=== PATIENT | male | born 1950 | race Caucasian/White ===

== ENCOUNTER 2017-08-21 16:11 | Inpatient (IN) ==
[2017-08-21] MEDS ORDERED: levoFLOXacin 750 MG TABLET PO ONE (16:26)
--- NOTE | 2017-08-21 16:32 | Emergency Department Note ---
Disposition Clinical Impression: Bilateral pneumonia, Severe sepsis Disposition: Admitted As Inpatient [facility] Care Provider[facility] - Forms: ED Satisfaction Letter General Adult HPI - General Chief complaint: ED Shortness of Breath/Dyspnea Stated complaint: [facility] Time Seen by Provider: 08/21/17 16:19 Source: patient, EMS Limitations: no limitations - History of Present Illness HPI Narrative: 74-year-old male reports from the [facility], he was evaluated urgent care and determine have bilateral pneumonitis, he was recently treated with azithromycin, the reports are the patient received Rocephin injection at the facility. The patient has been short of breath, a lactic acid was elevated at the DE. The patient has had a cough. There is no history of chest pain, abdominal pain vomiting diarrhea or confusion. The patient does not wear oxygen at home, he has no history of COPD. He is a type II diabetic. There is no history of leg swelling or pain or syncope. No history of CAD or CHF. There is no history of malignancy DVT or PE. There is no history of dylan confusion or difficulty moving the arms or legs and apparently. No acute back pain urinary symptoms or rash. No history of headache or neck stiffness. Some shortness of breath as described. Pain Scale: 0 - Related Data Home Medications Medication Instructions Recorded Confirmed Acetaminophen [Tylenol] 650 mg PO Q6H PRN 08/21/17 08/21/17 Azithromycin [Azithromycin 6-Tab 250 mg PO PER PKG DI 08/21/17 08/21/17 Pack] Benzonatate 100 mg PO TID PRN 08/21/17 08/21/17 L. Acidophilus/Pectin, [place] 1 each PO DAILY 08/21/17 08/21/17 [Acidophilus Probiotic Capsule] Saw/Vit E/Sod Mary Lou/Lyc/Beta/Pyg 1 each PO DAILY 08/21/17 08/21/17 [Prostate Health Caplet] Sildenafil Citrate [Viagra] 25 mg PO AD PRN 08/21/17 08/21/17 Terazosin HCl 10 mg PO HS 08/21/17 08/21/17 Allergies Allergy/AdvReac Type Severity Reaction Status Date / Time polyethylene glycol 400 AdvReac Unknown Verified 08/21/17 16:50 [From Systane (propylene glycol)] propylene glycol AdvReac Unknown Verified 08/21/17 16:50 [From Systane (propylene glycol)] All systems ED: reviewed and negative except as stated. Past Medical History - Past Medical History Medical history: Reports: diabetes, hyperlipidemia, hypertension Psychiatric history: Reports: no psych history - Social History Smoking Status: Former smoker Smokeless Tobacco Status: No Alcohol use: Reports: occasionally Drug use: Reports: none Physical Exam - General Limitations: no limitations General appearance: alert, in no apparent distress - Head Head exam: atraumatic, normocephalic, normal inspection - Eye Eye exam: Present: normal appearance, PERRL, EOMI, scleral icterus. Absent: conjunctival injection, miosis, mydriasis - ENT ENT exam: normal exam, normal oropharynx, mucous membranes moist, normal external ear exam - Neck Neck exam: Present: normal inspection, full ROM, trachea midline - Chest Chest inspection: Present: symmetric chest wall rise. Absent: tenderness - Respiratory Respiratory exam: Present: prolonged expiratory phase. Absent: respiratory distress, wheezes, accessory muscle use - Cardiovascular Cardiovascular exam: Present: normal rhythm, tachycardia - Abdominal Exam Abdominal exam: Present: soft, Non-Tender, normal bowel sounds. Absent: tenderness, distention, guarding, rebound, rigidity, pulsatile mass - Extremities Exam Extremities exam: Present: normal inspection, full ROM, normal capillary refill. Absent: tenderness, pedal edema, joint swelling, calf tenderness - Expanded Lower Extremity Exam Lower leg exam: Absent: Homans' sign Neurovascular/Tendon exam: Present: normal capillary refill. Absent: pulse deficit, motor deficit, sensory deficit, extremity cold to touch, pallor - Back Exam Back exam: Present: normal inspection, full ROM. Absent: tenderness, CVA tenderness (R), CVA tenderness (L), vertebral tenderness - Neurological Exam Neurological exam: Present: alert, oriented X3, CN II-XII intact. Absent: motor sensory deficit - Psychiatric Psychiatric exam: Present: normal affect, normal mood - Skin Skin exam: Present: warm, dry, intact, normal color. Absent: rash, cyanosis, diaphoresis, erythema, pallor, mottled Course Vital Signs Temperature 101.2 F H 08/21/17 16:13 Pulse Rate 134 08/21/17 16:13 Respiratory Rate 22 08/21/17 16:13 Blood Pressure 106/56 08/21/17 16:13 O2 Sat by Pulse Oximetry 90 08/21/17 16:13 Temperature 101.2 F H 08/21/17 16:13 Pulse Rate 134 08/21/17 16:13 Respiratory Rate 20 08/21/17 17:14 Blood Pressure 106/56 08/21/17 16:13 O2 Sat by Pulse Oximetry 94 08/21/17 17:14 Oxygen Delivery Oxygen Delivery Nasal Cannula Medical Decision Making - MDM Narrative Medical decision making narrative: The patient was evaluated at the [facility], chest x-ray reveals bilateral pneumonitis. The patient's white count is low, he had an elevated bilirubin and abnormal liver function tests as well as an lactate of 2.2. He was given Rocephin at the DE, he had been previously treated with azithromycin. The patient has been symptomatically for about 10 days. Levaquin was ordered here in emergency department. The DE [place] blood cultures. Patient was given IV fluids here in the emergency department. He was significantly tachycardic with elevated LFT's, I believe he meets severe sepsis criteria. The patient's primary examination reveals the extremities to be warm and well perfused. Secondary examination reveals that the patient is perfusing well, he is alert and following commands well. Lungs re-auscultated show diminished breath sounds , initially do an abdomen ordered as well as Solu-Medrol. The patient remained somewhat tachycardic but appears to be stable. I discussed the case with the hospitalist on-call who has accepted the patient to their care. The patient is currently stable pending admission to the hospital. The patient appears to have failed outpatient therapy. 5 L of oxygen was applied in the ED. The patient has no usual oxygen requirement. Solu-Medrol and a DuoNeb were also ordered. - Lab Data Lab results reviewed: Yes I reviewed the patient's lab results. Lab Results 08/21/17 08/21/17 Range/Units 16:47 16:47 PT 14.6 H (9.4-12.1) Seconds INR 1.3 APTT 28.1 (26.0-36.0) Seconds Lactic Acid 1.0 (0.5-2.2) mmol/L - Radiology Data Radiology results reviewed: Yes I reviewed the patient's radiology results.
[2017-08-21] MEDS: 0.9 % Sodium Chloride 1,000 ML IVC SCH ×2 (16:38→23:19)
[2017-08-21] MEDS ORDERED: methylPREDNISolone 125 MG/2 ML VIAL IVP ONE (16:42)
[2017-08-21] MEDS ORDERED: Ipratropium/Albuterol Neb 3 ML IH ONE (16:42)
[2017-08-21 17:03] LABS: INR 1.3; Prothrombin Time 14.6 Seconds (9.4-12.1)
[2017-08-21 17:05] LABS: Activated Partial Thrombo Time 28.1 Seconds (26.0-36.0)
[2017-08-21 18:14] LABS: Squamous Epithelial Cell,Urine Few per lpf (None-Few)
[2017-08-21 18:15] LABS: RBC,Urine 15-30 per hpf (0-3)
[2017-08-21 18:16] LABS: Bacteria,Urine Few per hpf (None-Few)
[2017-08-21 19:03] LABS: Hematocrit 33.6 % (37.5-50.1); Hemoglobin 11.6 g/dL (12.9-16.9); Lymphocytes # 0.3 K/mcL (0.6-4.6); Lymphocytes % 6.8 %; Mean Corpuscular HGB Conc 34.5 g/dL (31.6-35.5); Mean Corpuscular Hemoglobin 28.7 pg (28.0-33.3); Mean Corpuscular Volume 83.2 fL (83.0-100.0); Monocytes # 0.2 K/mcL (0.0-1.3); Monocytes % 5.3 %; Neutrophils # 3.6 K/mcL (1.6-8.9); Platelet Count 114 K/mcL (140-400); Red Blood Count 4.04 M/mcL (4.19-5.50); Red Cell Distribution Width 14.7 % (11.5-14.5); Segmented Neutrophils % 86.9 %
[2017-08-21 19:06] LABS: Alanine Aminotransferase 42 Units/L (0-55); Albumin 2.2 g/dL (3.5-5.0); Albumin/Globulin Ratio 0.6 (1.1-2.2); Alkaline Phosphatase 504 Units/L (38-126); Aspartate Amino Transferase 29 Units/L (5-34); BUN/Creatinine Ratio 10 (6-26); Bilirubin,Total 2.8 mg/dL (0.2-1.2); Blood Urea Nitrogen 10 mg/dL (8-26); Calcium 8.4 mg/dL (8.6-10.8); Carbon Dioxide 21 mEq/L (19-29); Chloride 107 mEq/L (98-109); Globulin 3.8 g/dL (2.4-3.5); Glucose 145 mg/dL (70-99); Osmolality,Calculated 284 (280-300); Potassium 3.3 mEq/L (3.5-4.5); Sodium 136 mEq/L (136-145); eGFR For African Americans > 60 (> 60); eGFR For Non-African Americans > 60 (> 60)
[2017-08-21] MEDS ORDERED: 0.9 % Sodium Chloride 1,000 ML IVC ONE (19:09)
[2017-08-21] MEDS ORDERED: Acetaminophen 325 MG TABLET PO PRN (19:09)
[2017-08-21] MEDS ORDERED: Ondansetron 4 MG/2 ML VIAL IVP PRN (19:10)
[2017-08-21] MEDS ORDERED: Naloxone 0.4 MG/ML INJ IVP PRN (19:13)
[2017-08-21] MEDS ORDERED: 0.9 % Sodium Chloride 1,000 ML IVC SCH (19:15)
[2017-08-21 19:27] LABS: Platelet Estimate Decreased (Normal)
--- NOTE | 2017-08-21 20:38 | Internal Med History&Physical ---
<Miguel Ángel Aragon - Last Filed: 08/21/17 21:19> Date of Encounter: 08/21/17 Time of Encounter: 18:00 Assessment and Plan (1) Bilateral pneumonia Current visit: Yes Status: Acute Patient presents with bilateral pneumonitis [facility]. Pt. states he was placed on PO azithromycin for dx of pneumonia on August 11 but his sx have worsened since that time. Pt. reports SOB/dyspnea and dizziness d/t SOB. Pt. denies use of home O2. Pt. also reports productive cough w/sputum production which has also increased. Blood cultures x2. Sputum culture. Continuous cardiac telemetry. Supplemental O2 w/titration and SpO2 monitoring. DuoNebs Q4 scheduled. Mucinex for cough. Pt. was given IVPB levaquin in the ED. Will discontinue levaquin and administer IVPB cefepime 1,000 mg Q8HR and IVPB vancomycin with pharmacy dosing for infection coverage. Will monitor pt. and f/ u labs for signs of increasing infection, cardiac, and/or respiratory distress. Pt. is at high risk for sepsis and further morbidity based on current sx, hx of failure of abx OP therapy, and SIRS criteria. Inpatient. Qualifiers: Pneumonia type: due to unspecified organism Lung location: unspecified part of lung Qualified Code(s): J18.9 - Pneumonia, unspecified organism (2) SIRS (systemic inflammatory response syndrome) Current visit: Yes Status: Acute Patient meets SIRS criteria based on white blood count of 4.1, temperature 101.2 F, heart rate of 132 bpm, and respiration rate of 22. [facility] to [facility], pts. lactic acid was elevated. Pt. received 1 bolus of 0.9 NS in the ED, followed by 125 mL/HR. Timed lactic acids ordered. Blood cultures x2 ordered stat. Sputum culture ordered stat. Continuous cardiac telemetry for tachycardia. Supplemental O2 w/titration and SpO2 monitoring. Monitor f/u labs and pt. for signs of increasing infection, cardiac, and/or respiratory distress. (3) Anemia Current visit: Yes Status: Acute Acute anemia with Hgb of 11.6 and Hct of 33.6 on admission. Pt. denies hx of anemia. Administer B12 1,000 mcg PO once and folic acid 1 mg PO daily. Monitor f /u labs. Qualifiers: Anemia type: unspecified type Qualified Code(s): D64.9 - Anemia, unspecified (4) Hypokalemia Current visit: Yes Status: Acute Acute hypokalemia with level of 3.3 on admission. Administer 20 mEq of PO potassium. Monitor f/u labs. (5) Hypocalcemia Current visit: Yes Status: Acute Acute hypocalcemia with level of 8.4 on admission. Administer calcium carbonate PO 1,000 mg TID. Monitor f/u labs. (6) Urinary retention Current visit: Yes Status: Chronic Hx of chronic urinary retention. Will continue patient's prostate health capsule and Terazosin. Monitor I&O and daily weight. (7) Pre-diabetes Current visit: Yes Status: Chronic Acute hyperglycemia w/BG of 145. Pt. denies hx of diabetes or use of oral antuhyperglycemic medications or insulin. Low-dose correction insulin sliding scale with hypoglycemic protocol. BG checks ACHS. A1c in a.m. labs. (8) DVT prophylaxis Current visit: Yes Status: Acute Heparin 5,000 units SQ Q8 for DVT prophylaxis. Monitor pt. for signs of bleeding. Internal Medicine - H&P: HPI Chief complaint: SOB/Dyspnea Admitted From: Emergency Dept Plans for Post Hospital Care: Home History of present illness: Mr. Coelho is a 67 year old male with medical hx of pre-diabetes and urinary retention presents from the ED with chief complaint of shortness of breath and dyspnea since August 11. Patient also reports he has a cough with productive sputum for the same time period. She reports he was diagnosed with pneumonia at the [facility] several weeks ago and placed on by mouth azithromycin and [facility] Patient reports his symptoms have worsened and he now has a productive cough, shortness of breath, and dizziness related to shortness of breath. Patient denies fever, chills, nausea , vomiting, chest pain, palpitations, abdominal pain, diarrhea, constipation, changes in vision, unusual bleeding, headache, pre-syncope, or syncope. Past Med Surg Social Fam HX - Past Medical History Source: patient, old records reviewed, obtained from family Medical history: other (Pre-diabetes, urinary retention) Psychiatric history: no psych history - Past Surgical History Surgical History: orthopedic, other (Bilateral elbows), other (Bladder surgery) - Social History Smoking Status: Former smoker Packs per day: 2 PPD - Reports quitting in 1994 Smokeless Tobacco Status: No Alcohol use: occasionally Drug use: none Current living situation: Home, With Family Activity Level: Independent ambulation Recent Out of Country Travel Within the Last 8 Weeks: No Exposure or Possible Exposure to Illness During Travel: No - Family History Father Race: Family Member Ethnicity: Non- Living Status: Still Living Hx Family Cardiac Disorders: Yes ([place], Bypass surgery, Stent placements) Hx Family Cancer: Yes (Melanoma of the neck) Mother Race: Family Member Ethnicity: Non- Living Status: Age at : 88 Cause of : [place] Hx Family Cardiac Disorders: Yes ([place]) Sister Race: Family Member Ethnicity: Non- Living Status: Still Living Hx Family Medical Disorders: No Internal Medicine - H&P: Meds Acetaminophen [Tylenol] 650 mg PO Q6H PRN 08/21/17 [History] Azithromycin [Azithromycin 6-Tab Pack] 250 mg PO PER PKG DI 08/21/17 [History] Benzonatate 100 mg PO TID PRN 08/21/17 [History] L. Acidophilus/Pectin, [place] [Acidophilus Probiotic Capsule] 1 each PO DAILY [History] Saw/Vit E/Sod Mary Lou/Lyc/Beta/Pyg [Prostate Health Caplet] 1 each PO DAILY [History] Sildenafil Citrate [Viagra] 25 mg PO AD PRN 08/21/17 [History] Terazosin HCl 10 mg PO HS 08/21/17 [History] 3 Allergy/AdvReac Type Severity Reaction Status Date / Time polyethylene glycol 400 AdvReac Unknown Verified 08/21/17 16:50 [From Systane (propylene glycol)] propylene glycol AdvReac Unknown Verified 08/21/17 16:50 [From Systane (propylene glycol)] All Systems PM: A 10-system review of systems was performed and is negative for pertinent findings except as documented above in the HPI. - Constitutional Constitutional: no chills, no fever(s), no night sweats - EENT Eyes: no change in vision, no discharge, no pain, no photophobia Ears: no ear discharge, no ear pain, no tinnitus Nose, mouth and throat: no dysphagia, no nasal discharge, no neck pain, no sore throat - Breasts Breasts: as per HPI - Cardiovascular Cardiovascular ROS IM: as per HPI, dyspnea, dyspnea on exertion, no chest pain, no diaphoresis, no lightheadedness, no palpitations, no syncope - Respiratory Respiratory: as per HPI, cough, dyspnea, dyspnea on exertion, chest congestion - Gastrointestinal Gastrointestinal: no abdominal pain, no diarrhea, no hematemesis, no hematochezia, no melena, no nausea, no vomiting - Genitourinary Genitourinary ROS male: as per HPI, difficulty urinating - Musculoskeletal Musculoskeletal ROS IM: no numbness, no tingling - Integumentary Integumentary IM: no rash, no unusual bruising - Neurological Neurological ROS: as per HPI, dizziness, no confusion, no convulsions, no focal weakness, no numbness, no tingling, no tremor(s) - Psychiatric Psychiatric: as per HPI - Endocrine Endocrine IM: as per HPI - Hematologic/Lymphatic Hematologic/Lymphatic: no easy bruising - Allergic/Immunologic Allergic/Immunologic: as per HPI - Constitutional Vitals: Temp Pulse Resp BP Pulse Ox 98 F 121 18 130/68 92 08/21/17 19:22 08/21/17 19:22 08/21/17 19:22 08/21/17 19:22 08/21/17 19:22 General appearance: Present: cooperative, mild distress (Respiratory), A&O X 3, pleasant, answers questions appropriately - Head Head exam: Present: atraumatic, normal inspection, normocephalic - Eye Eye exam: Present: PERRL, conjuntiva pink, sclera anicteric Pupils: Present: PERRL - ENT ENT exam: Present: normal exam, normal external ear exam - Neck Neck exam general surgery: Present: normal inspection, supple, trachea midline. Absent: lymphadenopathy - Respiratory Respiratory exam: Present: decreased breath sounds. Absent: accessory muscle use, rales, rhonchi, wheezes - Cardiovascular Cardiovascular exam: Present: RRR, +S1, +S2. Absent: diastolic murmur, gallop, rubs, systolic murmur - GI/Abdominal GI/Abdominal exam: Present: normal bowel sounds, soft, no peritoneal signs. Absent: distended, tenderness - Rectal Rectal exam: Present: deferred - Additional comments: exam deferred. - Extremities Exam Extremities exam: Present: warm, radial pulses palpable and symmetrical. Absent : calf tenderness, cyanotic, pedal edema - Back Exam Back exam: Present: normal inspection - Neurological Exam Neurological exam: Present: CN II-XII intact, oriented X3, no focal deficits. Absent: pronater drift, facial droop, speech deficit - Psychiatric Psychiatric exam: Present: normal affect, normal mood - Skin Skin exam: Present: dry, intact Internal Med - H&P Results - Labs CBC & Chem 7: 08/21/17 16:46 08/21/17 16:46 - EKG Data EKG shows normal: sinus rhythm Rate: tachycardia - EKG Data Prior EKG available for review: yes EKG comments: 08/21/17 20:50 EKG dated 03/16/17 shows sinus rhythm, indeterminate axis, right bundle branch block. EKG dated 08/21/17 shows sinus tachycardia, nonspecific ST and T-wave abnormality, abnormal ECG. <Mikie Cruz - Last Filed: 08/22/17 06:33> Date of Encounter: 08/22/17 Internal Medicine - H&P: HPI History of present illness: Mr. Coelho is a 67 year old male All Systems PM: A 10-system review of systems was performed and is negative for pertinent findings except as documented above in the HPI. - Constitutional Vitals: Temp Pulse Resp BP Pulse Ox 99 F 106 22 152/81 95 08/22/17 05:13 08/22/17 05:13 08/22/17 05:13 08/22/17 05:13 08/22/17 05:13 Internal Med - H&P Results - Labs CBC & Chem 7: 08/21/17 16:46 08/22/17 05:15 Labs: BMP 08/22/17 05:15 Sodium 137 Potassium 4.4 D Chloride 109 Carbon Dioxide 18 L BUN 12 Creatinine 0.96 Glucose 303 H Calcium 8.4 L Liver Function 08/22/17 Range/Units 05:15 Total Bilirubin 2.4 H (0.2-1.2) mg/dL AST 21 (5-34) Units/L ALT 35 (0-55) Units/L Alkaline Phosphatase 445 H (38-126) Units/L Albumin 1.9 L (3.5-5.0) g/dL - Attending Attestation I have seen and examined the patient independently. I have discussed with RECLAMATION FURNACE OPERATOR Mr Aragon regarding the management plan. Agree with the documentation. Patient has a failed azithromycin treatment. Will place patient on Vanco and cefepime to cover MRSA, strep, and Pseudomonas. No need for further atypical coverage because patient has been treated with azithromycin.
[2017-08-21] MEDS ORDERED: D5% in Water 1,000 ML IVC PRN (20:59)
[2017-08-21] MEDS: GuaiFENesin/Dextromethorphan TABLET PO SCH (20:59)
[2017-08-21] MEDS ORDERED: *HR* Dextrose 50 % in Water (Syg) 50 ML SYRINGE IVP PRN (20:59)
[2017-08-21] MEDS ORDERED: Dextrose Gel 15 GM PO PRN ×2 (20:59)
[2017-08-21] MEDS ORDERED: Vancomycin 1,250 MG in D5% in Water 250 ML IVPB SCH (21:00)
[2017-08-21] MEDS: *HR* Heparin 5,000 UNIT/ML VIAL SQ SCH (21:01)
[2017-08-21] MEDS: Insulin LISPRO 300 UNITS/3 ML VIAL SQ SCH (21:13)
[2017-08-21] MEDS: Vancomycin 1,250 MG in D5% in Water 250 ML IVPB SCH (23:04)
[2017-08-21] MEDS: Ipratropium/Albuterol Neb 3 ML IH SCH (23:33)
[2017-08-22] MEDS ORDERED: Cefepime HCl 1,000 MG in D5% in Water (Mini-Bag+) 100 ML IVPB SCH
[2017-08-22] MEDS: Cefepime HCl 1,000 MG in Water for inj. (sterile) 10 ML IVP SCH ×3 (01:03→15:49)
[2017-08-22] MEDS: Ipratropium/Albuterol Neb 3 ML IH SCH ×6 (04:10→23:24)
[2017-08-22] MEDS: *HR* Heparin 5,000 UNIT/ML VIAL SQ SCH ×3 (04:47→21:58)
[2017-08-22 06:15] LABS: Hematocrit 33.4 % (37.5-50.1); Hemoglobin 11.1 g/dL (12.9-16.9); Mean Corpuscular HGB Conc 33.2 g/dL (31.6-35.5); Mean Corpuscular Hemoglobin 28.3 pg (28.0-33.3); Mean Corpuscular Volume 85.2 fL (83.0-100.0); Mean Platelet Volume 11.1 fL (9.4-12.4); Monocytes # 0.2 K/mcL (0.0-1.3); Platelet Count 100 K/mcL (140-400); Red Blood Count 3.92 M/mcL (4.19-5.50); Red Cell Distribution Width 15.4 % (11.5-14.5)
[2017-08-22 06:17] LABS: Hemoglobin A1C 6.1 %
[2017-08-22 06:28] LABS: Alanine Aminotransferase 35 Units/L (0-55); Albumin/Globulin Ratio 0.5 (1.1-2.2); Alkaline Phosphatase 445 Units/L (38-126); Aspartate Amino Transferase 21 Units/L (5-34); BUN/Creatinine Ratio 13 (6-26); Bilirubin,Total 2.4 mg/dL (0.2-1.2); Blood Urea Nitrogen 12 mg/dL (8-26); Calcium 8.4 mg/dL (8.6-10.8); Carbon Dioxide 18 mEq/L (19-29); Chloride 109 mEq/L (98-109); Cholesterol 98 mg/dL (< 200); Globulin 3.7 g/dL (2.4-3.5); Glucose 303 mg/dL (70-99); HDL Cholesterol 7 mg/dL (40-59); LDL Cholesterol,Calculated 63 mg/dL (0-99); Magnesium 1.6 mg/dL (1.6-2.6); Osmolality,Calculated 295 (280-300); Sodium 137 mEq/L (136-145); Total Protein 5.6 g/dL (6.0-8.3); Triglycerides 141 mg/dL (< 150); eGFR For African Americans > 60 (> 60); eGFR For Non-African Americans > 60 (> 60)
[2017-08-22 06:29] LABS: Albumin 1.9 g/dL (3.5-5.0); Potassium 4.4 mEq/L (3.5-4.5)
[2017-08-22 07:13] LABS: Lymphocytes # 0.2 K/mcL (0.6-4.6); Neutrophils # 3.8 K/mcL (1.6-8.9)
[2017-08-22 07:14] LABS: Platelet Estimate Decreased (Normal)
[2017-08-22 07:17] LABS: Acanthocytes 1+ (Not Present); Hypochromasia Present (Not Present); Macrocytosis Present (Not Present); Tear Drop Cells 1+ (Not Present)
[2017-08-22 07:18] LABS: Polychromasia 1+ (Not Present); Toxic Granulation Present (Not Present)
[2017-08-22] MEDS: 0.9 % Sodium Chloride 1,000 ML IVC SCH ×2 (07:30→17:26)
[2017-08-22] MEDS ORDERED: VIT E PO SCH (09:00)
[2017-08-22] MEDS ORDERED: LYC PO SCH (09:00)
[2017-08-22] MEDS ORDERED: BETA PO SCH (09:00)
[2017-08-22] MEDS ORDERED: SAW PO SCH (09:00)
[2017-08-22] MEDS ORDERED: Levofloxacin 750 MG/150 ML 750 MG/150 ML BAG IVPB SCH (09:00)
[2017-08-22] MEDS ORDERED: PYG PO SCH (09:00)
[2017-08-22] MEDS ORDERED: SOD SEL PO SCH (09:00)
[2017-08-22] MEDS: Insulin LISPRO 300 UNITS/3 ML VIAL SQ SCH ×4 (09:25→21:55)
[2017-08-22] MEDS: Cyanocobalamin (B-12) 1,000 MCG TABLET PO SCH (09:25)
[2017-08-22] MEDS: Folic Acid 1 MG TABLET PO SCH (09:25)
[2017-08-22] MEDS: GuaiFENesin/Dextromethorphan TABLET PO SCH ×2 (09:34→21:54)
[2017-08-22] MEDS: Lactobacillus 1 EACH CAP.SPRINK PO SCH (09:34)
[2017-08-22] MEDS: Vancomycin 1,250 MG in D5% in Water 250 ML IVPB SCH ×2 (09:35→21:56)
[2017-08-22] MEDS: *HR* HYDROcodone/Acet 5/325 mg TABLET PO PRN (11:54)
--- NOTE | 2017-08-22 14:21 | Electrocardiograph Report ---
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
--- NOTE | 2017-08-22 19:01 | Internal Med Progress Note ---
Date of Encounter: 08/22/17 Time of Encounter: 11:00 - Assessment and plan (1) Bilateral pneumonia Current Visit: Yes Status: Acute Assessment and plan: -Will continue current medical management with IV cefepime and vancomycin. Qualifiers: Pneumonia type: due to unspecified organism Lung location: unspecified part of lung Qualified Code(s): J18.9 - Pneumonia, unspecified organism (2) Severe sepsis Current Visit: Yes Status: Acute Assessment and plan: -Secondary to the above. -Continue fluid resuscitation and IV antibiotics as above (3) DVT prophylaxis Current Visit: Yes Status: Acute Assessment and plan: -Subcutaneous heparin - Subjective Interval history: No acute events overnight. - Constitutional Vitals: Temp Pulse Resp BP Pulse Ox 97.6 F 120 19 129/63 88 08/22/17 16:30 08/22/17 16:30 08/22/17 16:30 08/22/17 16:30 08/22/17 16:30 General appearance: Present: cooperative, mild distress (Respiratory), A&O X 3, pleasant, answers questions appropriately - Respiratory Respiratory exam: Present: CTAB. Absent: accessory muscle use, rales, rhonchi, wheezes - Cardiovascular Cardiovascular exam: Present: RRR, +S1, +S2. Absent: diastolic murmur, gallop, rubs, systolic murmur Internal Medicine: Result - Labs CBC & Chem 7: 08/22/17 05:15 08/22/17 05:15 Labs: Short CBC 08/22/17 Range/Units 05:15 WBC 4.1 L (4.3-11.1) K/mcL Hgb 11.1 L (12.9-16.9) g/dL Hct 33.4 L (37.5-50.1) % Plt Count 100 L (140-400) K/mcL Neutrophils # 3.8 (1.6-8.9) K/mcL BMP 08/22/17 05:15 Sodium 137 Potassium 4.4 D Chloride 109 Carbon Dioxide 18 L BUN 12 Creatinine 0.96 Glucose 303 H Calcium 8.4 L Liver Function 08/22/17 Range/Units 05:15 Total Bilirubin 2.4 H (0.2-1.2) mg/dL AST 21 (5-34) Units/L ALT 35 (0-55) Units/L Alkaline Phosphatase 445 H (38-126) Units/L Albumin 1.9 L (3.5-5.0) g/dL - ABG Interpretation ABG results: PT/INR, D-dimer PT 14.6 Seconds (9.4-12.1) H 08/21/17 16:47 - VTE Documentation of Mechanical Device: Intermittent pneumatic compression device Consult Discharge Plan - Plan [facility]errals: [facility] [Primary Care Provider] -
[2017-08-22] MEDS ORDERED: Melatonin 3 MG TABLET PO PRN (22:46)
[2017-08-23] MEDS: Cefepime HCl 1,000 MG in Water for inj. (sterile) 10 ML IVP SCH ×3 (01:09→16:50)
[2017-08-23] MEDS: Ipratropium/Albuterol Neb 3 ML IH SCH ×6 (05:22→23:24)
[2017-08-23 05:24] LABS: Hematocrit 29.6 % (37.5-50.1); Immature Granulocytes % 1.7 % (0-4); Lymphocytes # 0.4 K/mcL (0.6-4.6); Lymphocytes % 9.2 %; Mean Corpuscular HGB Conc 33.8 g/dL (31.6-35.5); Mean Corpuscular Hemoglobin 28.9 pg (28.0-33.3); Mean Corpuscular Volume 85.5 fL (83.0-100.0); Mean Platelet Volume 10.6 fL (9.4-12.4); Monocytes # 0.3 K/mcL (0.0-1.3); Neutrophils # 3.4 K/mcL (1.6-8.9); Platelet Count 130 K/mcL (140-400); Red Blood Count 3.46 M/mcL (4.19-5.50); Red Cell Distribution Width 15.4 % (11.5-14.5); Segmented Neutrophils % 83.1 %
[2017-08-23 05:41] LABS: Alanine Aminotransferase 31 Units/L (0-55); Albumin/Globulin Ratio 0.5 (1.1-2.2); Alkaline Phosphatase 365 Units/L (38-126); Aspartate Amino Transferase 19 Units/L (5-34); BUN/Creatinine Ratio 18 (6-26); Blood Urea Nitrogen 20 mg/dL (8-26); Calcium 8.6 mg/dL (8.6-10.8); Carbon Dioxide 21 mEq/L (19-29); Chloride 109 mEq/L (98-109); Globulin 3.6 g/dL (2.4-3.5); Glucose 319 mg/dL (70-99); Osmolality,Calculated 301 (280-300); Potassium 4.1 mEq/L (3.5-4.5); Sodium 138 mEq/L (136-145); Total Protein 5.4 g/dL (6.0-8.3); eGFR For African Americans > 60 (> 60); eGFR For Non-African Americans > 60 (> 60)
[2017-08-23 05:43] LABS: Albumin 1.8 g/dL (3.5-5.0)
[2017-08-23] MEDS: *HR* Heparin 5,000 UNIT/ML VIAL SQ SCH ×3 (05:43→21:31)
[2017-08-23] MEDS: 0.9 % Sodium Chloride 1,000 ML IVC SCH ×2 (05:45→16:49)
[2017-08-23] MEDS: Lactobacillus 1 EACH CAP.SPRINK PO SCH (08:44)
[2017-08-23] MEDS: Folic Acid 1 MG TABLET PO SCH (08:44)
[2017-08-23] MEDS: GuaiFENesin/Dextromethorphan TABLET PO SCH ×2 (08:44→21:31)
[2017-08-23] MEDS: Cyanocobalamin (B-12) 1,000 MCG TABLET PO SCH (08:44)
[2017-08-23] MEDS: Vancomycin 1,250 MG in D5% in Water 250 ML IVPB SCH (08:48)
[2017-08-23] MEDS: Insulin LISPRO 300 UNITS/3 ML VIAL SQ SCH ×4 (08:49→21:32)
--- NOTE | 2017-08-23 19:22 | Internal Med Progress Note ---
Date of Encounter: 08/23/17 Time of Encounter: 11:00 - Assessment and plan (1) Bilateral pneumonia Current Visit: Yes Status: Acute Assessment and plan: -Sepsis has improved as patient now with a sofa score of 2 as opposed to 3 on . -Will continue current medical management with IV cefepime and vancomycin. Qualifiers: Pneumonia type: due to unspecified organism Lung location: unspecified part of lung Qualified Code(s): J18.9 - Pneumonia, unspecified organism (2) Severe sepsis Current Visit: Yes Status: Acute Assessment and plan: -Secondary to the above. -Sofa score now 3 as opposed to 2 on 08/22/17. -Continue fluid resuscitation and IV antibiotics as above (3) DVT prophylaxis Current Visit: Yes Status: Acute Assessment and plan: -Subcutaneous heparin - Subjective Interval history: No acute events overnight. - Constitutional Vitals: Temp Pulse Resp BP Pulse Ox 98.0 F 99 16 136/72 93 08/23/17 15:37 08/23/17 15:37 08/23/17 15:37 08/23/17 15:37 08/23/17 15:37 General appearance: Present: cooperative, mild distress (Respiratory), A&O X 3, pleasant, answers questions appropriately - Respiratory Respiratory exam: Present: CTAB. Absent: accessory muscle use, rales, rhonchi, wheezes - Cardiovascular Cardiovascular exam: Present: RRR, +S1, +S2. Absent: diastolic murmur, gallop, rubs, systolic murmur Internal Medicine: Result - Labs CBC & Chem 7: 08/23/17 04:29 08/23/17 04:29 Labs: Short CBC 08/23/17 Range/Units 04:29 WBC 4.1 L (4.3-11.1) K/mcL Hgb 10.0 L (12.9-16.9) g/dL Hct 29.6 L (37.5-50.1) % Plt Count 130 L (140-400) K/mcL Neutrophils # 3.4 (1.6-8.9) K/mcL BMP 08/23/17 04:29 Sodium 138 Potassium 4.1 Chloride 109 Carbon Dioxide 21 BUN 20 Creatinine 1.09 Glucose 319 H Calcium 8.6 Liver Function 08/23/17 Range/Units 04:29 Total Bilirubin 1.0 D (0.2-1.2) mg/dL AST 19 (5-34) Units/L ALT 31 (0-55) Units/L Alkaline Phosphatase 365 H (38-126) Units/L Albumin 1.8 L (3.5-5.0) g/dL - ABG Interpretation ABG results: PT/INR, D-dimer PT 14.6 Seconds (9.4-12.1) H 08/21/17 16:47 - Impressions Impressions Chest X-Ray 08/23/17 11:10 IMPRESSION: Mild bibasilar airspace disease which is likely infectious in etiology. D/ / Ted Lanier MD / Ted Lanier MD Interpreting Provider: Ted Lanier MD - VTE Documentation of Mechanical Device: Intermittent pneumatic compression device Consult Discharge Plan - Plan Instructions: Sepsis (DC), Anemia (GEN), Pneumonia (DC) [facility]errals: [facility] [Primary Care Provider] -
[2017-08-24] MEDS: Cefepime HCl 1,000 MG in Water for inj. (sterile) 10 ML IVP SCH ×4 (00:08→22:55)
[2017-08-24 01:19] LABS: Basophils % 0.3 %; Hematocrit 31.2 % (37.5-50.1); Hemoglobin 10.7 g/dL (12.9-16.9); Immature Granulocytes % 4.9 % (0-4); Lymphocytes # 0.7 K/mcL (0.6-4.6); Lymphocytes % 16.9 %; Mean Corpuscular HGB Conc 34.3 g/dL (31.6-35.5); Mean Corpuscular Hemoglobin 29.1 pg (28.0-33.3); Mean Corpuscular Volume 84.8 fL (83.0-100.0); Mean Platelet Volume 9.9 fL (9.4-12.4); Monocytes # 0.2 K/mcL (0.0-1.3); Monocytes % 4.9 %; Neutrophils # 2.8 K/mcL (1.6-8.9); Platelet Count 145 K/mcL (140-400); Red Blood Count 3.68 M/mcL (4.19-5.50); Red Cell Distribution Width 15.5 % (11.5-14.5)
[2017-08-24 01:36] LABS: Alanine Aminotransferase 48 Units/L (0-55); Albumin/Globulin Ratio 0.5 (1.1-2.2); Alkaline Phosphatase 444 Units/L (38-126); Aspartate Amino Transferase 52 Units/L (5-34); BUN/Creatinine Ratio 20 (6-26); Blood Urea Nitrogen 20 mg/dL (8-26); Calcium 8.3 mg/dL (8.6-10.8); Carbon Dioxide 20 mEq/L (19-29); Chloride 109 mEq/L (98-109); Globulin 3.6 g/dL (2.4-3.5); Glucose 145 mg/dL (70-99); Osmolality,Calculated 289 (280-300); Potassium 3.9 mEq/L (3.5-4.5); Sodium 137 mEq/L (136-145); Total Protein 5.4 g/dL (6.0-8.3); eGFR For African Americans > 60 (> 60); eGFR For Non-African Americans > 60 (> 60)
[2017-08-24 01:39] LABS: Albumin 1.8 g/dL (3.5-5.0)
[2017-08-24] MEDS: Ipratropium/Albuterol Neb 3 ML IH SCH ×6 (03:55→23:41)
[2017-08-24] MEDS: *HR* Heparin 5,000 UNIT/ML VIAL SQ SCH ×3 (06:36→21:34)
[2017-08-24] MEDS: 0.9 % Sodium Chloride 1,000 ML IVC SCH ×2 (06:36→15:14)
[2017-08-24] MEDS: Insulin LISPRO 300 UNITS/3 ML VIAL SQ SCH ×4 (07:45→20:11)
[2017-08-24] MEDS: Lactobacillus 1 EACH CAP.SPRINK PO SCH (08:23)
[2017-08-24] MEDS: GuaiFENesin/Dextromethorphan TABLET PO SCH ×2 (08:23→09:32)
[2017-08-24] MEDS: Folic Acid 1 MG TABLET PO SCH (08:23)
[2017-08-24] MEDS: Cyanocobalamin (B-12) 1,000 MCG TABLET PO SCH (08:23)
[2017-08-24] MEDS: *HR* HYDROcodone/Acet 5/325 mg TABLET PO PRN (08:23)
--- NOTE | 2017-08-24 20:36 | Internal Med Progress Note ---
Date of Encounter: 08/24/17 Time of Encounter: 10:00 - Assessment and plan (1) Bilateral pneumonia Current Visit: Yes Status: Acute Assessment and plan: -Sepsis has improved as patient now with a sofa score of 1 as opposed to 3 on . -Will continue current medical management with IV cefepime and vancomycin. Qualifiers: Pneumonia type: due to unspecified organism Lung location: unspecified part of lung Qualified Code(s): J18.9 - Pneumonia, unspecified organism (2) Severe sepsis Current Visit: Yes Status: Acute Assessment and plan: -Secondary to the above. -Sofa score now 1 as opposed to 3 on 08/22/17. -Continue fluid resuscitation and IV antibiotics as above (3) DVT prophylaxis Current Visit: Yes Status: Acute Assessment and plan: -Subcutaneous heparin - Subjective Interval history: No acute events overnight. - Constitutional Vitals: Temp Pulse Resp BP Pulse Ox 98.8 F 97 17 159/77 96 08/24/17 20:06 08/24/17 20:06 08/24/17 20:06 08/24/17 20:06 08/24/17 20:06 General appearance: Present: cooperative, mild distress (Respiratory), A&O X 3, pleasant, answers questions appropriately - Respiratory Respiratory exam: Present: CTAB. Absent: accessory muscle use, rales, rhonchi, wheezes - Cardiovascular Cardiovascular exam: Present: RRR, +S1, +S2. Absent: diastolic murmur, gallop, rubs, systolic murmur Internal Medicine: Result - Labs CBC & Chem 7: 08/24/17 00:58 08/24/17 00:58 Labs: Short CBC 08/24/17 Range/Units 00:58 WBC 3.8 L (4.3-11.1) K/mcL Hgb 10.7 L (12.9-16.9) g/dL Hct 31.2 L (37.5-50.1) % Plt Count 145 (140-400) K/mcL Neutrophils # 2.8 (1.6-8.9) K/mcL BMP 08/24/17 00:58 Sodium 137 Potassium 3.9 Chloride 109 Carbon Dioxide 20 BUN 20 Creatinine 0.99 Glucose 145 H Calcium 8.3 L Liver Function 08/24/17 Range/Units 00:58 Total Bilirubin 1.0 (0.2-1.2) mg/dL AST 52 H (5-34) Units/L ALT 48 (0-55) Units/L Alkaline Phosphatase 444 H (38-126) Units/L Albumin 1.8 L (3.5-5.0) g/dL - ABG Interpretation ABG results: PT/INR, D-dimer PT 14.6 Seconds (9.4-12.1) H 08/21/17 16:47 - VTE Documentation of Mechanical Device: Intermittent pneumatic compression device Consult Discharge Plan - Plan Instructions: Sepsis (DC), Anemia (GEN), Pneumonia (DC) [facility]: [facility] [Primary Care Provider] -
[2017-08-24] MEDS: Melatonin 3 MG TABLET PO PRN (22:56)
[2017-08-25 03:00] LABS: Hematocrit 30.9 % (37.5-50.1); Hemoglobin 10.2 g/dL (12.9-16.9); Mean Corpuscular Hemoglobin 28.1 pg (28.0-33.3); Mean Corpuscular Volume 85.1 fL (83.0-100.0); Mean Platelet Volume 9.6 fL (9.4-12.4); Platelet Count 140 K/mcL (140-400); Red Blood Count 3.63 M/mcL (4.19-5.50); Red Cell Distribution Width 15.5 % (11.5-14.5)
[2017-08-25 03:21] LABS: Alanine Aminotransferase 67 Units/L (0-55); Albumin 1.8 g/dL (3.5-5.0); Albumin/Globulin Ratio 0.5 (1.1-2.2); Alkaline Phosphatase 479 Units/L (38-126); Aspartate Amino Transferase 62 Units/L (5-34); BUN/Creatinine Ratio 15 (6-26); Bilirubin,Total 1.2 mg/dL (0.2-1.2); Blood Urea Nitrogen 15 mg/dL (8-26); Calcium 8.2 mg/dL (8.6-10.8); Carbon Dioxide 21 mEq/L (19-29); Chloride 110 mEq/L (98-109); Globulin 3.5 g/dL (2.4-3.5); Glucose 143 mg/dL (70-99); Osmolality,Calculated 291 (280-300); Potassium 3.7 mEq/L (3.5-4.5); Sodium 139 mEq/L (136-145); Total Protein 5.3 g/dL (6.0-8.3); eGFR For African Americans > 60 (> 60); eGFR For Non-African Americans > 60 (> 60)
[2017-08-25] MEDS: Ipratropium/Albuterol Neb 3 ML IH SCH ×5 (03:47→19:39)
[2017-08-25 03:58] LABS: Eosinophils # 0.1 K/mcL (0.0-0.6); Lymphocytes # 0.6 K/mcL (0.6-4.6); Monocytes # 0.2 K/mcL (0.0-1.3); Neutrophils # 2.6 K/mcL (1.6-8.9); Platelet Estimate Normal (Normal)
[2017-08-25 03:59] LABS: Anisocytosis 1+ (Not Present)
[2017-08-25] MEDS: *HR* Heparin 5,000 UNIT/ML VIAL SQ SCH ×3 (05:54→20:35)
[2017-08-25] MEDS: Lactobacillus 1 EACH CAP.SPRINK PO SCH (08:11)
[2017-08-25] MEDS: Folic Acid 1 MG TABLET PO SCH (08:11)
[2017-08-25] MEDS: Cefepime HCl 1,000 MG in Water for inj. (sterile) 10 ML IVP SCH ×2 (08:11→16:04)
[2017-08-25] MEDS: Cyanocobalamin (B-12) 1,000 MCG TABLET PO SCH (08:11)
[2017-08-25] MEDS: Insulin LISPRO 300 UNITS/3 ML VIAL SQ SCH ×4 (08:14→20:38)
[2017-08-25] MEDS ORDERED: Saline Nasal Spray 44 ML BOTTLE NS PRN (12:37)
[2017-08-25] MEDS: 0.9 % Sodium Chloride 1,000 ML IVC SCH ×2 (13:54)
--- NOTE | 2017-08-25 17:55 | Internal Med Progress Note ---
Date of Encounter: 08/25/17 Time of Encounter: 11:00 - Assessment and plan (1) Bilateral pneumonia Current Visit: Yes Status: Acute Assessment and plan: -Sepsis sofa score of 1 as opposed to 3 on 08/22/17. -Blood cultures negative to date; streptococcal antigen positive. -Will continue current medical management with IV cefepime. Qualifiers: Pneumonia type: due to unspecified organism Lung location: unspecified part of lung Qualified Code(s): J18.9 - Pneumonia, unspecified organism (2) Severe sepsis Current Visit: Yes Status: Acute Assessment and plan: -Secondary to the above. -Sofa score now 1 as opposed to 3 on 08/22/17. -Continue fluid resuscitation and IV antibiotics as above (3) DVT prophylaxis Current Visit: Yes Status: Acute Assessment and plan: -Subcutaneous heparin - Subjective Interval history: No acute events overnight. Patient reports a feeling better with decreased cough. - Constitutional Vitals: Temp Pulse Resp BP Pulse Ox 98.2 F 112 18 149/82 91 08/24/17 23:03 08/25/17 14:55 08/25/17 15:56 08/25/17 15:56 08/25/17 15:56 General appearance: Present: cooperative, mild distress (Respiratory), A&O X 3, pleasant, answers questions appropriately - Respiratory Respiratory exam: Present: CTAB. Absent: accessory muscle use, rales, rhonchi, wheezes - Cardiovascular Cardiovascular exam: Present: RRR, +S1, +S2. Absent: diastolic murmur, gallop, rubs, systolic murmur Internal Medicine: Result - Labs CBC & Chem 7: 08/25/17 02:53 08/25/17 02:53 Labs: Short CBC 08/25/17 Range/Units 02:53 WBC 3.5 L (4.3-11.1) K/mcL Hgb 10.2 L (12.9-16.9) g/dL Hct 30.9 L (37.5-50.1) % Plt Count 140 (140-400) K/mcL Neutrophils # 2.6 (1.6-8.9) K/mcL BMP 08/25/17 02:53 Sodium 139 Potassium 3.7 Chloride 110 H Carbon Dioxide 21 BUN 15 Creatinine 0.97 Glucose 143 H Calcium 8.2 L Liver Function 08/25/17 Range/Units 02:53 Total Bilirubin 1.2 (0.2-1.2) mg/dL AST 62 H (5-34) Units/L ALT 67 H (0-55) Units/L Alkaline Phosphatase 479 H (38-126) Units/L Albumin 1.8 L (3.5-5.0) g/dL - ABG Interpretation ABG results: PT/INR, D-dimer PT 14.6 Seconds (9.4-12.1) H 08/21/17 16:47 - VTE Documentation of Mechanical Device: Intermittent pneumatic compression device Consult Discharge Plan - Plan Instructions: Sepsis (DC), Anemia (GEN), Pneumonia (DC) [facility]errals: [facility] [Primary Care Provider] -
[2017-08-25] MEDS: Melatonin 3 MG TABLET PO PRN (22:34)
[2017-08-26] MEDS: 0.9 % Sodium Chloride 1,000 ML IVC SCH ×2 (01:06→12:17)
[2017-08-26] MEDS: Ipratropium/Albuterol Neb 3 ML IH SCH ×6 (02:30→20:21)
[2017-08-26 04:30] LABS: Hematocrit 31.6 % (37.5-50.1); Hemoglobin 10.5 g/dL (12.9-16.9); Mean Corpuscular HGB Conc 33.2 g/dL (31.6-35.5); Mean Corpuscular Hemoglobin 28.5 pg (28.0-33.3); Mean Corpuscular Volume 85.9 fL (83.0-100.0); Mean Platelet Volume 9.9 fL (9.4-12.4); Platelet Count 153 K/mcL (140-400); Red Blood Count 3.68 M/mcL (4.19-5.50); Red Cell Distribution Width 15.5 % (11.5-14.5)
[2017-08-26 04:44] LABS: Alanine Aminotransferase 68 Units/L (0-55); Albumin/Globulin Ratio 0.5 (1.1-2.2); Alkaline Phosphatase 467 Units/L (38-126); Aspartate Amino Transferase 53 Units/L (5-34); BUN/Creatinine Ratio 14 (6-26); Bilirubin,Total 1.2 mg/dL (0.2-1.2); Blood Urea Nitrogen 13 mg/dL (8-26); Calcium 8.4 mg/dL (8.6-10.8); Carbon Dioxide 20 mEq/L (19-29); Chloride 110 mEq/L (98-109); Globulin 3.5 g/dL (2.4-3.5); Glucose 139 mg/dL (70-99); Osmolality,Calculated 292 (280-300); Potassium 3.9 mEq/L (3.5-4.5); Sodium 140 mEq/L (136-145); Total Protein 5.4 g/dL (6.0-8.3); eGFR For African Americans > 60 (> 60); eGFR For Non-African Americans > 60 (> 60)
[2017-08-26 04:54] LABS: Albumin 1.9 g/dL (3.5-5.0)
[2017-08-26 05:16] LABS: Lymphocytes # 0.8 K/mcL (0.6-4.6); Monocytes # 0.3 K/mcL (0.0-1.3); Neutrophils # 2.4 K/mcL (1.6-8.9); Platelet Estimate Normal (Normal)
[2017-08-26] MEDS: *HR* Heparin 5,000 UNIT/ML VIAL SQ SCH ×3 (06:30→21:05)
[2017-08-26] MEDS: Insulin LISPRO 300 UNITS/3 ML VIAL SQ SCH ×4 (08:16→21:09)
[2017-08-26] MEDS: Cefepime HCl 1,000 MG in Water for inj. (sterile) 10 ML IVP SCH ×3 (08:16→15:14)
[2017-08-26] MEDS: Lactobacillus 1 EACH CAP.SPRINK PO SCH (08:17)
[2017-08-26] MEDS: Folic Acid 1 MG TABLET PO SCH (08:17)
[2017-08-26] MEDS: Cyanocobalamin (B-12) 1,000 MCG TABLET PO SCH (08:17)
--- NOTE | 2017-08-26 16:54 | Internal Med Progress Note ---
Date of Encounter: 08/26/17 Time of Encounter: 10:00 - Assessment and plan (1) Group B streptococcal pneumonia Current Visit: Yes Status: Acute Assessment and plan: -Sepsis sofa score continues to be 1 as opposed to 3 on 08/22/17; acute hypoxic respiratory failure. -Blood cultures negative to date; streptococcal antigen positive. -Will continue current medical management with IV cefepime but restart vancomycin due to persistent neutoprnia with bandemia. Qualifiers: Laterality: bilateral Qualified Code(s): J15.3 - Pneumonia due to streptococcus, group B (2) Severe sepsis Current Visit: Yes Status: Acute Assessment and plan: -Secondary to the above. -Sofa score now 1 (hypoxic respiratory failure) as opposed to 3 on 08/22/17. -Continue fluid resuscitation and IV antibiotics as above (3) Elevated transaminase level Current Visit: Yes Status: Acute Assessment and plan: -Thought to be due to originally to sepsis but will order right upper quadrant ultrasound for further evaluation -Will consider GI consult pending results. (4) DVT prophylaxis Current Visit: Yes Status: Acute Assessment and plan: -Subcutaneous heparin - Subjective Interval history: No acute events overnight. Patient continues to improve clinically, slowly - Constitutional Vitals: Temp Pulse Resp BP Pulse Ox 98.2 F 137 16 151/94 97 08/26/17 15:40 08/26/17 15:40 08/26/17 15:40 08/26/17 15:40 08/26/17 15:40 General appearance: Present: cooperative, mild distress (Respiratory), A&O X 3, pleasant, answers questions appropriately - Respiratory Respiratory exam: Present: CTAB. Absent: accessory muscle use, rales, rhonchi, wheezes - Cardiovascular Cardiovascular exam: Present: RRR, +S1, +S2. Absent: diastolic murmur, gallop, rubs, systolic murmur Internal Medicine: Result - Labs CBC & Chem 7: 08/26/17 03:35 08/26/17 03:35 Labs: Short CBC 08/26/17 Range/Units 03:35 WBC 3.4 L (4.3-11.1) K/mcL Hgb 10.5 L (12.9-16.9) g/dL Hct 31.6 L (37.5-50.1) % Plt Count 153 (140-400) K/mcL Neutrophils # 2.4 (1.6-8.9) K/mcL BMP 08/26/17 03:35 Sodium 140 Potassium 3.9 Chloride 110 H Carbon Dioxide 20 BUN 13 Creatinine 0.96 Glucose 139 H Calcium 8.4 L Liver Function 08/26/17 Range/Units 03:35 Total Bilirubin 1.2 (0.2-1.2) mg/dL AST 53 H (5-34) Units/L ALT 68 H (0-55) Units/L Alkaline Phosphatase 467 H (38-126) Units/L Albumin 1.9 L (3.5-5.0) g/dL - ABG Interpretation ABG results: PT/INR, D-dimer PT 14.6 Seconds (9.4-12.1) H 08/21/17 16:47 - VTE Documentation of Mechanical Device: Intermittent pneumatic compression device Consult Discharge Plan - Plan Instructions: Sepsis (DC), Anemia (GEN), Pneumonia (DC) [facility]errals: [facility] [Primary Care Provider] -
[2017-08-26] MEDS ORDERED: Vancomycin 1,250 MG in D5% in Water 250 ML IVPB SCH (17:00)
[2017-08-26] MEDS: Ketorolac 15 MG/ML VIAL IVP PRN (18:58)
[2017-08-26] MEDS: Vancomycin 1,250 MG in D5% in Water 250 ML IVPB SCH (18:59)
[2017-08-27] MEDS: Ipratropium/Albuterol Neb 3 ML IH SCH ×7 (00:04→23:36)
[2017-08-27] MEDS: Cefepime HCl 1,000 MG in Water for inj. (sterile) 10 ML IVP SCH ×4 (00:14→23:20)
[2017-08-27] MEDS: 0.9 % Sodium Chloride 1,000 ML IVC SCH ×3 (00:15→23:18)
[2017-08-27] MEDS: *HR* Heparin 5,000 UNIT/ML VIAL SQ SCH ×3 (06:30→21:00)
[2017-08-27] MEDS: Vancomycin 1,250 MG in D5% in Water 250 ML IVPB SCH ×2 (06:30→20:58)
[2017-08-27] MEDS: Insulin LISPRO 300 UNITS/3 ML VIAL SQ SCH ×4 (07:52→21:01)
[2017-08-27] MEDS: Folic Acid 1 MG TABLET PO SCH (08:00)
[2017-08-27] MEDS: Cyanocobalamin (B-12) 1,000 MCG TABLET PO SCH (08:00)
[2017-08-27] MEDS: Lactobacillus 1 EACH CAP.SPRINK PO SCH (08:00)
[2017-08-27] MEDS: Ketorolac 15 MG/ML VIAL IVP PRN ×3 (08:15→23:42)
[2017-08-27 08:19] LABS: Basophils % 0.4 %; Eosinophils % 1.1 %; Hematocrit 30.7 % (37.5-50.1); Hemoglobin 10.1 g/dL (12.9-16.9); Immature Granulocytes % 7.4 % (0-4); Lymphocytes # 0.7 K/mcL (0.6-4.6); Lymphocytes % 24.4 %; Mean Corpuscular HGB Conc 32.9 g/dL (31.6-35.5); Mean Corpuscular Hemoglobin 28.6 pg (28.0-33.3); Monocytes # 0.2 K/mcL (0.0-1.3); Monocytes % 6.6 %; Neutrophils # 1.6 K/mcL (1.6-8.9); Platelet Count 148 K/mcL (140-400); Red Blood Count 3.53 M/mcL (4.19-5.50); Red Cell Distribution Width 15.7 % (11.5-14.5); Segmented Neutrophils % 60.1 %
[2017-08-27 08:20] LABS: BUN/Creatinine Ratio 12 (6-26); Blood Urea Nitrogen 11 mg/dL (8-26); Calcium 8.1 mg/dL (8.6-10.8); Carbon Dioxide 24 mEq/L (19-29); Chloride 110 mEq/L (98-109); Glucose 153 mg/dL (70-99); Osmolality,Calculated 290 (280-300); Sodium 139 mEq/L (136-145); eGFR For African Americans > 60 (> 60); eGFR For Non-African Americans > 60 (> 60)
[2017-08-27 09:24] LABS: Platelet Estimate Normal (Normal)
--- NOTE | 2017-08-27 18:53 | Internal Med Progress Note ---
Date of Encounter: 08/27/17 Time of Encounter: 11:00 - Assessment and plan (1) Group B streptococcal pneumonia Current Visit: Yes Status: Acute Assessment and plan: -Sepsis sofa score continues to be 1 as opposed to 3 on 08/22/17; acute hypoxic respiratory failure. -Blood cultures negative to date; streptococcal antigen positive. -Patient however continues to have worsening neutropenia -Will continue current medical management with IV cefepime but restart vancomycin due to persistent neutoprnia with bandemia. -We will consult infectious disease and appreciate recommendations. Qualifiers: Laterality: bilateral Qualified Code(s): J15.3 - Pneumonia due to streptococcus, group B (2) Severe sepsis Current Visit: Yes Status: Acute Assessment and plan: -Secondary to the above. -Sofa score now 1 (hypoxic respiratory failure) as opposed to 3 on 08/22/17. -Continue fluid resuscitation and IV antibiotics as above (3) Elevated transaminase level Current Visit: Yes Status: Acute Assessment and plan: -Thought to be due to originally to sepsis but will order right upper quadrant ultrasound for further evaluation -Will consider GI consult pending results. (4) DVT prophylaxis Current Visit: Yes Status: Acute Assessment and plan: -Subcutaneous heparin - Subjective Interval history: No acute events overnight. Patient continues to improve clinically, slowly However patient continues to have worsening neutropenia - Constitutional Vitals: Temp Pulse Resp BP Pulse Ox 98 F 110 16 152/84 91 08/27/17 15:34 08/27/17 15:34 08/27/17 15:42 08/27/17 15:34 08/27/17 15:42 General appearance: Present: cooperative, mild distress (Respiratory), A&O X 3, pleasant, answers questions appropriately - Respiratory Respiratory exam: Present: CTAB. Absent: accessory muscle use, rales, rhonchi, wheezes - Cardiovascular Cardiovascular exam: Present: RRR, +S1, +S2. Absent: diastolic murmur, gallop, rubs, systolic murmur Internal Medicine: Result - Labs CBC & Chem 7: 08/27/17 07:59 08/27/17 07:59 Labs: Short CBC 08/27/17 Range/Units 07:59 WBC 2.7 L (4.3-11.1) K/mcL Hgb 10.1 L (12.9-16.9) g/dL Hct 30.7 L (37.5-50.1) % Plt Count 148 (140-400) K/mcL Neutrophils # 1.6 (1.6-8.9) K/mcL BMP 08/27/17 07:59 Sodium 139 Potassium 4.0 Chloride 110 H Carbon Dioxide 24 BUN 11 Creatinine 0.95 Glucose 153 H Calcium 8.1 L - ABG Interpretation ABG results: PT/INR, D-dimer PT 14.6 Seconds (9.4-12.1) H 08/21/17 16:47 - VTE Documentation of Mechanical Device: Intermittent pneumatic compression device Consult Discharge Plan - Plan Instructions: Sepsis (DC), Anemia (GEN), Pneumonia (DC) [facility]errals: [facility] [Primary Care Provider] -
[2017-08-28] MEDS: Ipratropium/Albuterol Neb 3 ML IH SCH ×5 (03:19→19:40)
[2017-08-28] MEDS: *HR* Heparin 5,000 UNIT/ML VIAL SQ SCH ×3 (06:22→21:44)
[2017-08-28 08:07] LABS: Hematocrit 32.4 % (37.5-50.1); Hemoglobin 10.5 g/dL (12.9-16.9); Lymphocytes # 0.8 K/mcL (0.6-4.6); Mean Corpuscular HGB Conc 32.4 g/dL (31.6-35.5); Mean Corpuscular Hemoglobin 28.5 pg (28.0-33.3); Mean Corpuscular Volume 87.8 fL (83.0-100.0); Mean Platelet Volume 9.1 fL (9.4-12.4); Monocytes # 0.2 K/mcL (0.0-1.3); Neutrophils # 1.2 K/mcL (1.6-8.9); Platelet Count 154 K/mcL (140-400); Red Blood Count 3.69 M/mcL (4.19-5.50); Red Cell Distribution Width 15.8 % (11.5-14.5)
[2017-08-28 08:14] LABS: BUN/Creatinine Ratio 13 (6-26); Blood Urea Nitrogen 13 mg/dL (8-26); Calcium 8.4 mg/dL (8.6-10.8); Carbon Dioxide 21 mEq/L (19-29); Chloride 110 mEq/L (98-109); Glucose 123 mg/dL (70-99); Osmolality,Calculated 289 (280-300); Potassium 4.3 mEq/L (3.5-4.5); Sodium 139 mEq/L (136-145); eGFR For African Americans > 60 (> 60); eGFR For Non-African Americans > 60 (> 60)
[2017-08-28] MEDS: Cefepime HCl 1,000 MG in Water for inj. (sterile) 10 ML IVP SCH ×2 (09:03→16:30)
[2017-08-28] MEDS: Lactobacillus 1 EACH CAP.SPRINK PO SCH (09:04)
[2017-08-28] MEDS: Folic Acid 1 MG TABLET PO SCH (09:04)
[2017-08-28] MEDS: Insulin LISPRO 300 UNITS/3 ML VIAL SQ SCH ×4 (09:05→21:35)
[2017-08-28] MEDS: Cyanocobalamin (B-12) 1,000 MCG TABLET PO SCH (09:05)
[2017-08-28 09:06] LABS: Eosinophils # 0.1 K/mcL (0.0-0.6)
[2017-08-28 09:07] LABS: Platelet Estimate Normal (Normal)
[2017-08-28] MEDS: 0.9 % Sodium Chloride 1,000 ML IVC SCH (10:52)
[2017-08-28 11:03] LABS: Vancomycin,Trough 17.1 mcg/mL (10-20)
[2017-08-28] MEDS: Vancomycin 1,250 MG in D5% in Water 250 ML IVPB SCH ×3 (12:03→21:31)
[2017-08-28] MEDS: Ketorolac 15 MG/ML VIAL IVP PRN ×2 (12:06→21:47)
[2017-08-28] MEDS ORDERED: Aminoglycoside Consult 1 EACH MC ONE (14:59)
--- NOTE | 2017-08-28 17:38 | Internal Med Progress Note ---
Date of Encounter: 08/28/17 Time of Encounter: 11:00 - Assessment and plan (1) Group B streptococcal pneumonia Current Visit: Yes Status: Acute Assessment and plan: -Sepsis sofa score continues to be 1 as opposed to 3 on 08/22/17; acute hypoxic respiratory failure. -Blood cultures negative to date; streptococcal antigen positive. -Patient however continues to have worsening neutropenia -Will continue current medical management with IV cefepime but restart vancomycin due to persistent neutoprnia with bandemia. -We will consult infectious disease and appreciate recommendations. Qualifiers: Laterality: bilateral Qualified Code(s): J15.3 - Pneumonia due to streptococcus, group B (2) Severe sepsis Current Visit: Yes Status: Acute Assessment and plan: -Secondary to the above. -Sofa score now 1 (hypoxic respiratory failure) as opposed to 3 on 08/22/17. -Continue fluid resuscitation and IV antibiotics as above (3) Elevated transaminase level Current Visit: Yes Status: Acute Assessment and plan: -Thought to be due to originally to sepsis but will order right upper quadrant ultrasound for further evaluation -Right upper quadrant ultrasound showed prominent periportal fat with otherwise normal appearance of the liver in addition to diffuse gallbladder wall thickening most likely related to liver disease. (4) DVT prophylaxis Current Visit: Yes Status: Acute Assessment and plan: -Subcutaneous heparin - Subjective Interval history: No acute events overnight. Patient continues to improve clinically, slowly However patient continues to have worsening neutropenia Will consult infectious disease as a result - Constitutional Vitals: Temp Pulse Resp BP Pulse Ox 98.1 F 96 18 135/73 96 08/28/17 15:19 08/28/17 15:19 08/28/17 16:22 08/28/17 15:19 08/28/17 16:22 General appearance: Present: cooperative, mild distress (Respiratory), A&O X 3, pleasant, answers questions appropriately - Respiratory Respiratory exam: Present: CTAB. Absent: accessory muscle use, rales, rhonchi, wheezes - Cardiovascular Cardiovascular exam: Present: RRR, +S1, +S2. Absent: diastolic murmur, gallop, rubs, systolic murmur Internal Medicine: Result - Labs CBC & Chem 7: 08/28/17 07:56 08/28/17 07:56 Labs: Short CBC 08/28/17 Range/Units 07:56 WBC 2.3 L (4.3-11.1) K/mcL Hgb 10.5 L (12.9-16.9) g/dL Hct 32.4 L (37.5-50.1) % Plt Count 154 (140-400) K/mcL Neutrophils # 1.2 L (1.6-8.9) K/mcL BMP 08/28/17 07:56 Sodium 139 Potassium 4.3 Chloride 110 H Carbon Dioxide 21 BUN 13 Creatinine 1.01 Glucose 123 H Calcium 8.4 L - ABG Interpretation ABG results: PT/INR, D-dimer PT 14.6 Seconds (9.4-12.1) H 08/21/17 16:47 - Impressions Impressions Abdomen Ultrasound 08/28/17 08:20 IMPRESSION: 1. Prominent periportal fat with otherwise normal appearance of the liver. This appearance has been reported with hepatitis but could be normal for the patient. 2. Findings suggestive of renal parenchymal disease especially on the right. 3. Trace ascites. 4. Diffuse gallbladder wall thickening most likely related to liver disease, ascites, or systemic process such as hypoproteinemia, renal failure, or cardiac failure. D/ / Alton Gay MD / Alton Gay MD Interpreting Provider: Alton Gay MD - VTE Documentation of Mechanical Device: Intermittent pneumatic compression device Consult Discharge Plan - Plan Instructions: Sepsis (DC), Anemia (GEN), Pneumonia (DC) [facility]: [facility] [Primary Care Provider] -
[2017-08-29] MEDS: Cefepime HCl 1,000 MG in Water for inj. (sterile) 10 ML IVP SCH (00:28)
[2017-08-29] MEDS: Ipratropium/Albuterol Neb 3 ML IH SCH ×6 (03:13→19:51)
[2017-08-29] MEDS: 0.9 % Sodium Chloride 1,000 ML IVC SCH (06:01)
[2017-08-29] MEDS: *HR* Heparin 5,000 UNIT/ML VIAL SQ SCH (06:02)
[2017-08-29 07:45] VITALS: BP 158/80
[2017-08-29] MEDS: Insulin LISPRO 300 UNITS/3 ML VIAL SQ SCH ×2 (08:24→13:04)
[2017-08-29] MEDS: Folic Acid 1 MG TABLET PO SCH (08:31)
[2017-08-29] MEDS: Lactobacillus 1 EACH CAP.SPRINK PO SCH (08:31)
[2017-08-29] MEDS: Cyanocobalamin (B-12) 1,000 MCG TABLET PO SCH (08:31)
[2017-08-29 08:39] LABS: Basophils % 0.5 %; Eosinophils # 0.1 K/mcL (0.0-0.6); Eosinophils % 2.4 %; Hematocrit 33.6 % (37.5-50.1); Hemoglobin 10.8 g/dL (12.9-16.9); Immature Granulocytes % 4.4 % (0-4); Lymphocytes # 0.6 K/mcL (0.6-4.6); Lymphocytes % 28.3 %; Mean Corpuscular HGB Conc 32.1 g/dL (31.6-35.5); Mean Corpuscular Hemoglobin 28.2 pg (28.0-33.3); Mean Corpuscular Volume 87.7 fL (83.0-100.0); Mean Platelet Volume 9.1 fL (9.4-12.4); Monocytes # 0.1 K/mcL (0.0-1.3); Monocytes % 6.8 %; Neutrophils # 1.2 K/mcL (1.6-8.9); Platelet Count 151 K/mcL (140-400); Red Blood Count 3.83 M/mcL (4.19-5.50); Red Cell Distribution Width 15.9 % (11.5-14.5); Segmented Neutrophils % 57.6 %
[2017-08-29] MEDS ORDERED: levoFLOXacin 750 MG TABLET PO SCH (09:00)
--- NOTE | 2017-08-29 11:30 | Discharge Summary ---
Date of Encounter: 08/29/17 Time of Encounter: 11:28 - Discharge Diagnosis (1) Pneumonia Priority: Primary Status: Acute Qualifiers: Pneumonia type: due to Pneumococcus Laterality: bilateral Lung location: lower lobe of lung Qualified Code(s): J13 - Pneumonia due to Streptococcus pneumoniae (2) Leukopenia Priority: Secondary Status: Acute Qualifiers: Leukopenia type: neutropenia Neutropenia type: due to infection Qualified Code(s): D70.3 - Neutropenia due to infection (3) Bilateral pneumonia Priority: Secondary Status: Acute Qualifiers: Pneumonia type: due to Pneumococcus Lung location: lower lobe of lung Qualified Code(s): J13 - Pneumonia due to Streptococcus pneumoniae (4) Severe sepsis Priority: Secondary Status: Resolved (5) Urinary retention Priority: Secondary Status: Chronic (6) DVT prophylaxis Priority: Secondary Status: Acute (7) Hypokalemia Priority: Secondary Status: Acute (8) Hypocalcemia Priority: Secondary Status: Resolved (9) Elevated transaminase level Priority: Secondary Status: Acute - Discharge Medications Prescriptions: GuaiFENesin/Dextromethorphan [Robitussin/Dm] 10 ml PO Q6HR PRN #30 udc PRN Reason: Cough Amoxicillin/Clavulanate [Augmentin] 875 mg PO BIDWM #14 tablet Calcium Carbonate [Tums] 1,000 mg PO TID #90 tab.chew Cyanocobalamin (B-12) [Vitamin B12] 1,000 mcg PO DAILY #30 tablet Folic Acid 1 mg PO DAILY #30 tablet Home Medications: Acetaminophen [Tylenol] 650 mg PO Q6H PRN 08/21/17 [History] Benzonatate 100 mg PO TID PRN 08/21/17 [History] L. Acidophilus/Pectin, [place] [Acidophilus Probiotic Capsule] 1 each PO DAILY [History] Saw/Vit E/Sod Mary Lou/Lyc/Beta/Pyg [Prostate Health Caplet] 1 each PO DAILY [History] Sildenafil Citrate [Viagra] 25 mg PO AD PRN 08/21/17 [History] Terazosin HCl 10 mg PO HS 08/21/17 [History] Amoxicillin/Clavulanate [Augmentin] 875 mg PO BIDWM #14 tablet 08/29/17 [Rx] Calcium Carbonate [Tums] 1,000 mg PO TID #90 tab.chew 08/29/17 [Rx] Cyanocobalamin (B-12) [Vitamin B12] 1,000 mcg PO DAILY #30 tablet 08/29/17 [Rx] Folic Acid 1 mg PO DAILY #30 tablet 08/29/17 [Rx] GuaiFENesin/Dextromethorphan [Robitussin/Dm] 10 ml PO Q6HR PRN #30 udc 08/29/17 [Rx] Allergies/Adverse Reactions: 3 Allergy/AdvReac Type Severity Reaction Status Date / Time No Known Allergies Allergy Verified 08/27/17 06:56 Procedures/tests Complete & Pending: Procedures Performed prior 72 hours Category Date Time Status US abdomen limited [US] Routine Exams 08/28/17 08:20 Completed - Notes to Outpatient Provider Please check CBC in 1 week. If patient remains leukopenic/neutropenic refer him to hematology/oncology for further evaluation. At this time this is believed to be due to acute infection/sepsis from pneumococcal pneumonia or antibiotic toxicity. Peripheral smear was done and showed decreased leukocyte count with normocytic anemia. If this persists, consider flow cytometry for WBC CD59 in CD55. Continue to monitor leukocyte count as outpatient. Date of admission: 08/21/17 17:35 [facility] physician: [facility] Consults: 08/21/17 19:13 Consult to Digital Commentator [CONS] Routine Reason for SW Consult: Assess patient for possible home needs for post- discharge planning. 08/27/17 18:49 Consult to Infectious Diseases [CONS] Routine Consulting Provider: Infectious Disease [facility] Reason for Consult: Continued neutropenia after several day treatment of strep pneumo Call Completed: No Discharging clinician: Rashida Funes Anticipated date of discharge: 08/29/17 - Patient Status Disposition: Home, Self-Care Condition: Good Functional capacity at discharge: independent ambulation Overall status at discharge: patient is progressing back to baseline - Ambulatory Orders Ambulatory Orders: Complete Blood Count [HEME] Time Frame: 1 Week, Facility: [facility], Location: Lab - Discharge Instructions Instructions: Amoxicillin/Clavulanate Potassium (By mouth), Folic Acid (By mouth), Antihistamine/Antitussive (By mouth), Vitamin B-12 (Cyanocobalamin) (By mouth), Antacid, Calcium and Magnesium (By mouth), Sepsis (DC), Anemia (GEN), Pneumonia (DC) Follow Up With: [facility] [Primary Care Provider[facility] - 09/05/17 10:00 am () Additional Instructions: Please arrange follow up with [facility]er puller through the [facility] regarding leukopenia/neutropenia - Diet and Activity Activity: increase activity as tolerated Diet: low fat, low cholesterol, low salt diet Hospital course: Mr. Coelho is a 67 year old male patient with history of prediabetes, urinary retention who presented to the ER with complaints of dyspnea. Patient was also having cough and productive sputum. He had apparently been diagnosed with pneumonia at the [facility] and was placed on azithromycin. His symptoms did not improve and so he came to the ER here. On presentation to the ER, he was diagnosed with bibasal pneumonia. He was started on treatment with cefepime and vancomycin to broaden coverage. His sputum and blood cultures were negative. His urine was positive for strep pneumonia antigen. Patient's condition started to improve with this treatment plan. He however became progressively neutropenic and leukopenic while his hemoglobin and platelet levels remain normal. He also had mild elevation in his liver enzymes and an elevation in his alkaline phosphatase to 500 which have since trended down. Ultrasound of the liver done here showed diffuse gallbladder wall thickening but no gallstones. Liver had normal size and echogenicity. Patient continued to receive cefepime and vancomycin. Mostly back to baseline clinically. He does have cough which is also improving with oral mucolytics. At this time, she is clinically stable for discharge home. His leukopenia could be related to IV antibiotic use. He however reports that he previously had an episode of pneumonia when he was younger and underwent bone marrow biopsy at that time. He may very well have chronic leukopenia. We do not have records here to review his previous labs. However, at this time we will stop intravenous antibiotics and switching to oral Augmentin to treat strep pneumoniae. I will also give him prescription to get his CBC checked in 1 week to see if his leukopenia resolves. If not, he will need referral [facility]. He has a follow-up scheduled with the [facility] in one week and is advised to follow up with them for further management. Patient does have prediabetes with an A1c of 6.1%. At time of discharge, patient is saturating at 95% on room air. Peripheral smear was done and showed decreased leukocyte count with normocytic anemia. If this persists, consider flow cytometry for WBC CD59 in CD55. Continue to monitor leukocyte count as outpatient. - Time Spent with Patient Total time spent providing and/or coordinating discharge services: Greater than 30 minutes (35 min) - Constitutional Vitals: Temp Pulse Resp BP Pulse Ox 97.8 F 104 18 158/80 95 08/29/17 07:40 08/29/17 07:40 08/29/17 11:00 08/29/17 07:40 08/29/17 11:00 General appearance: Present: cooperative, A&O X 3, pleasant, no acute distress, answers questions appropriately - Neck Neck exam general surgery: Present: supple, trachea midline. Absent: lymphadenopathy - Respiratory Respiratory exam: Present: CTAB. Absent: accessory muscle use, rales, rhonchi, wheezes - Cardiovascular Cardiovascular exam: Present: RRR, +S1, +S2. Absent: diastolic murmur, gallop, rubs, systolic murmur - GI/Abdominal GI/Abdominal exam: Present: normal bowel sounds, soft, no peritoneal signs. Absent: distended, tenderness - VTE Documentation of Mechanical Device: Intermittent pneumatic compression device
[2017-08-29] MEDS ORDERED: FLUARIX QUAD 2017-18 36MOS UP/PF 0.5 ML SYRINGE IM ONE (13:04)
[2017-08-29 13:46] LABS: Hepatitis B Surface Antigen Nonreactive (Nonreactive)
[2017-08-30 12:41] LABS: Hepatitis A Antibody IgM Nonreactive (Nonreactive); Hepatitis B Core IgM Nonreactive (Nonreactive); Hepatitis C Virus Antibody Nonreactive (Nonreactive)
== END 2017-08-29 15:00 | disposition home or self-care (01) | DRG 871 ==
LOC: EMEROO 16:11 → 2NENU 17:35 → SUATTDRO 17:35 → 2NENU 18:02
PROVIDERS: ADMIT Pediatrics; ATTEND Internal Medicine